=== PATIENT | female | born 1990 | race Two or more races ===

== ENCOUNTER → 2017-05-30 | Day surgery (SDC) | payer OTHER | END | disposition home or self-care (01) | LOC: FRADUS-SUR 07:54 | PROVIDERS: ATTEND Obstetrics & Gynecology Reproductive Endocrinology | PROC: BU081ZZ Plain Radiography of Uterus and Fallopian Tubes using Low Osmolar Contrast (ICD-10-PCS; principal; 2017-05-30) | DX: Z31.41 Encounter for fertility testing (principal) | CPT/HCPCS: 58340; 74740-TC; 76000-TC; 84703; Q9967 ==